=== PATIENT | male | born 1980 | race Caucasian/White ===

== ENCOUNTER 2020-12-08 12:31 | Inpatient (IN) | payer SELFPAY ==
[2020-12-08] VITALS (11 sets, daily range): BP systolic 94–126; BP diastolic 56–77
[~2020-12-08] VITALS: Ht 177.8 cm; Wt 135.2 kg
[~2020-12-08 12:31] MED LIST: COMPAZINE10 MG PO; FLAGYL500 MG PO; KEFLEX500 MG PO; LODINE 400MG400 MG PO; MEDROL DOSEPAK4 MG PO; MOTRIN800 MG PO; TRAMADOL HCL50 MG PO; TRIMOX500 MG PO; ULTRAM50 MG PO
[2020-12-08 13:07] LABS: HEMATOCRIT 54.8 % (42.0-52.0); MEAN CELL VOLUME 94.5 fl (80.0-94.0); MEAN CORPUSCULAR HGB CONC 31.8 g/dl (33.0-37.0); MEAN PLATELET VOLUME 11.4 fl (9.6-12.3); PLATELET COUNT AUTOMATED 390 10*3/uL (130-400); RED CELL DISTRI WIDTH 15.8 % (0-14.5); WHITE BLOOD COUNT 20.5 10*3/uL (4.8-10.8)
[2020-12-08 13:26] LABS: PLATELET SUFFICIENCY NORMAL (NORMAL); TOTAL CELLS COUNTED 100 #CELLS
[2020-12-08 14:00] LABS: ALBUMIN 3.4 gm/dl (3.1-4.5); CREATININE 2.92 mg/dL (0.70-1.30); TOTAL PROTEIN 8.6 gm/dL (6.4-8.2)
[2020-12-08 14:05] LABS: HDL CHOLESTEROL 44 mg/dl (40-60); POTASSIUM 6.1 mmol/L (3.5-5.1)
--- NOTE | 2020-12-08 14:08 | NUR ---
PATIENT REPORTS PAIN IMPROVEMENT WITH MEDICATION
[2020-12-08 14:26] LABS: TRIGLYCERIDES 2801 mg/dl (<150)
[2020-12-08 14:27] LABS: CHOLESTEROL 586 mg/dL (<200)
[2020-12-08 15:39] LABS: ABG BASE EXCESS -24.1 mmol/L (-2.0-2.0); ARTERIAL BLOOD GAS PH 7.141 (7.35-7.45)
--- NOTE | 2020-12-08 15:44 | NUR ---
BGM CHECKED AND READ HIGH. PHYSICIAN AWARE AND LAB AT BEDSIDE TO DRAW BMP. NOTIFIED PHYSICIAN OF [id number]. SEE NEW ORDERS.
--- NOTE | 2020-12-08 15:45 | NUR ---
DR MICHELE CONTACTED AT THIS TIME AND NOTIFIED OF CONSULT. REQUESTS THAT I ALSO HAVE THE RESIDENT CALL HIM WELL. DR MAKAYLA POWELL IS NOTIFIED OF THIS AT THIS TIME/
[2020-12-08 17:14] LABS: CREATININE 2.37 mg/dL (0.70-1.30)
[2020-12-08 18:32] LABS: CREATININE 1.94 mg/dL (0.70-1.30)
[2020-12-08 18:55] LABS: POTASSIUM 5.4 mmol/L (3.5-5.1)
--- NOTE | 2020-12-08 20:00 | NUR ---
INSULING DRIP CHANGED TO 6UNITS/HOUR PER ORDER.
[2020-12-08 20:34] LABS: CREATININE 1.81 mg/dL (0.70-1.30); POTASSIUM 5.6 mmol/L (3.5-5.1)
[2020-12-09] VITALS (11 sets, daily range): BP systolic 99–1119; BP diastolic 56–79
--- NOTE | 2020-12-09 00:02 | NUR ---
INSULIN DRIP TITRATED TO 3UNITS/HOUR PER ORDER.
[2020-12-09 00:42] LABS: BUN 23 mg/dl (7-24); CHLORIDE 107 mmol/L (98-107); CREATININE 1.35 mg/dL (0.70-1.30); SODIUM 136 mmol/L (136-145)
[2020-12-09 00:58] LABS: POTASSIUM 4.3 mmol/L (3.5-5.1)
--- NOTE | 2020-12-09 01:01 | NUR ---
CONTINUED COMPLAINTS OF A HEADACHE. CALLED INFORMED OF THIS AND THAT NORCO DIDN'T HELP MUCH. PT NOW NPO FOR ACUTE PANCREATITIS. SAID HE WOULD PUT SOMETHING IN.
--- NOTE | 2020-12-09 01:29 | NUR ---
TORADOL GIVEN FOR COMPLAINTS OF HEADACHE, WILL MONITOR. CALL LIGHT IN REACH.
--- NOTE | 2020-12-09 02:05 | NUR ---
PER PT, TORADOL EFFECTIVE. NO FURTHER COMPLAINTS OF HEADACHE. PT STATES HE IS HAVING HOT/COLD CHILLS. TEMP TAKEN-97.5. DENIES FURTHER NEEDS. CALL LIGHT IN REACH.
--- NOTE | 2020-12-09 03:00 | NUR ---
INSULIN DRIP TITRATED TO 2.5 UNITS/HR
--- NOTE | 2020-12-09 04:08 | NUR ---
BG-229, INSULIN DRIP RUNNING AT 2.5 UNITS/HR
--- NOTE | 2020-12-09 04:35 | NUR ---
SPOKE WITH , ORDERS FOR D5 1/2NS @125CC/HR REC'D. START FOLLOWING 0.45 NS. SEE ORDERS
--- NOTE | 2020-12-09 05:37 | NUR ---
PATIENT RESTING IN BED WITH EYES CLOSED. RR EASY AND NON-LABORED. CALL LIGHT WITHIN REACH. INSULIN DRIP RUNNING AT 2.5UNITS/HR AND D5 0.45NS RUNNING AT 125ML/HR. PATIENT HAS NO COMPLAINTS AT THIS TIME.
--- NOTE | 2020-12-09 06:07 | NUR ---
EMPIED 700ML OUTPUT FROM URINAL.
--- NOTE | 2020-12-09 06:07 | NUR ---
BG-236. NO CHANGE TO INSULIN. CURRENTLY RUNNING AT 2.5 UNITS/HR.
[2020-12-09 07:00] LABS: BASO % 0.2 % (0.0-1.0); EOS % 0.1 % (1.0-4.0); HEMATOCRIT 41.7 % (42.0-52.0); LYMPH # 1.1 10*3/uL (1.3-4.4); LYMPH % 10.4 % (27.0-41.0); MEAN CORPUSCULAR HGB 29.7 pg (27.0-31.0); MEAN CORPUSCULAR HGB CONC 33.3 g/dl (33.0-37.0); MEAN PLATELET VOLUME 10.1 fl (9.6-12.3); MONO # 0.8 10*3/uL (0.1-1.0); MONO % 7.2 % (3.0-9.0); NEUT # 8.4 10*3/uL (2.3-7.9); NEUT % 81.3 % (47.0-73.0); RED BLOOD COUNT 4.68 10*6/uL (4.50-5.90); RED CELL DISTRI WIDTH 15.3 % (0-14.5); WHITE BLOOD COUNT 10.4 10*3/uL (4.8-10.8)
--- NOTE | 2020-12-09 07:03 | NUR ---
PATIENTS BG-234. INSULIN DRIP CURRENTLY RUNNING AT 2.5 UNITS/HR.
[2020-12-09 07:04] LABS: MEAN CELL VOLUME 89.1 fl (80.0-94.0); PLATELET COUNT AUTOMATED 207 10*3/uL (130-400)
[2020-12-09 07:28] LABS: ACT PARTIAL THROMBO TIME 28.6 SECONDS (20.0-32.1)
[2020-12-09 07:34] LABS: VITAMIN D, 25-HYDROXY < 4.2 ng/mL (30-100)
[2020-12-09 07:48] LABS: ALBUMIN 2.4 gm/dl (3.1-4.5); ALKALINE PHOSPHATASE 77 U/L (45-117); BUN 20 mg/dl (7-24); CHLORIDE 108 mmol/L (98-107); CREATININE 1.17 mg/dL (0.70-1.30); LIPASE 522 U/L (73-393); POTASSIUM 4.3 mmol/L (3.5-5.1); SGOT/AST 48 IU/L (3-35); SGPT/ALT 28 U/L (12-78); SODIUM 136 mmol/L (136-145); TOTAL PROTEIN 6.9 gm/dL (6.4-8.2)
[2020-12-09 07:52] LABS: THYROID STIM HORMONE (HS) 0.531 uIU/ml (0.358-4.75)
[2020-12-09 08:01] LABS: FREE T4 1.19 ng/dl (0.76-1.46)
[2020-12-09 08:03] LABS: CHOLESTEROL 361 mg/dL (<200); HDL CHOLESTEROL 33 mg/dl (40-60)
[2020-12-09 08:08] LABS: TRIGLYCERIDES 1376 mg/dl (<150)
--- NOTE | 2020-12-09 08:16 | NUR ---
ORDERS RECEIVED TO GIVE ICE CHIPS SPARINGLY.
--- NOTE | 2020-12-09 08:20 | NUR ---
WAITING ON PHARMACY TO SEND K+ FOR INFUSION.
--- NOTE | 2020-12-09 10:29 | NUR ---
ICE CHIPS GIVEN PER DR STEVE.
--- NOTE | 2020-12-09 10:36 | NUR ---
SITTING UP IN BED EATING ICE CHIPS. NO COMPLAINTS, STATES "FEEL A LITTLE BETTER".
[2020-12-09 12:22] LABS: BUN 17 mg/dl (7-24); CHLORIDE 107 mmol/L (98-107); CREATININE 0.98 mg/dL (0.70-1.30); POTASSIUM 4.4 mmol/L (3.5-5.1); SODIUM 136 mmol/L (136-145)
--- NOTE | 2020-12-09 12:38 | NUR ---
RESTING IN NO DISTRESS. GIVEN A PILLOW. CALL LIGHT IN REACH.
--- NOTE | 2020-12-09 13:45 | NUR ---
EATING LUNCH AT THIS TIME.
[2020-12-09 17:07] LABS: BUN 15 mg/dl (7-24); CHLORIDE 106 mmol/L (98-107); CREATININE 0.92 mg/dL (0.70-1.30); POTASSIUM 3.8 mmol/L (3.5-5.1); SODIUM 137 mmol/L (136-145)
--- NOTE | 2020-12-09 19:55 | NUR ---
RESTING VOICES NO COMPLAINTS. PIPE CARLSON RN.
--- NOTE | 2020-12-09 23:30 | NUR ---
NO CHANGE IN CONDITION CALL LIGHT IN REACH. PIPE CARLSON RN.
[2020-12-10 03:25] VITALS: BP 131/79
--- NOTE | 2020-12-10 04:00 | NUR ---
PT SLEEPING AT THIS TIME CALL LIGHT IN REACH. PIPE CARLSON RN.
[2020-12-10 05:31] LABS: BUN 12 mg/dl (7-24); CHLORIDE 105 mmol/L (98-107); POTASSIUM 3.4 mmol/L (3.5-5.1); SGOT/AST 49 IU/L (3-35); SODIUM 137 mmol/L (136-145); TOTAL PROTEIN 6.5 gm/dL (6.4-8.2)
[2020-12-10 05:38] LABS: TRIGLYCERIDES 928 mg/dl (<150)
--- NOTE | 2020-12-10 06:00 | NUR ---
BLOOD SUGAR DONE WAS 186 AT THIS TIME. PIPE CARLSON RN.
[2020-12-10 06:05] LABS: ALBUMIN 2.3 gm/dl (3.1-4.5); SGPT/ALT 33 U/L (12-78)
[2020-12-10 06:09] LABS: ALKALINE PHOSPHATASE 81 U/L (45-117)
[2020-12-10 06:30] LABS: BASO % 0.3 % (0.0-1.0); EOS # 0.1 10*3/uL (0.0-0.4); EOS % 0.6 % (1.0-4.0); HEMATOCRIT 39.5 % (42.0-52.0); LYMPH # 1.5 10*3/uL (1.3-4.4); LYMPH % 18.2 % (27.0-41.0); MEAN CELL VOLUME 87.8 fl (80.0-94.0); MEAN CORPUSCULAR HGB 28.9 pg (27.0-31.0); MEAN CORPUSCULAR HGB CONC 32.9 g/dl (33.0-37.0); MEAN PLATELET VOLUME 10.5 fl (9.6-12.3); MONO # 0.7 10*3/uL (0.1-1.0); MONO % 8.7 % (3.0-9.0); NEUT # 5.7 10*3/uL (2.3-7.9); NEUT % 71.2 % (47.0-73.0); NUCLEATED RED BLOOD CELL 0.3 % (0.0-0.0); PLATELET COUNT AUTOMATED 189 10*3/uL (130-400); RED CELL DISTRI WIDTH 15.1 % (0-14.5)
--- NOTE | 2020-12-10 09:41 | NUR ---
DR MICHELE WAS CONTACTED PER DR PETERSEN ORDERS AND DR MICHELE STATES PT CAN BE DISCHARGED AND IS TO FOLLOW UP WITH HIM FOR AN OUTPATIENT SCOPE.
--- NOTE | 2020-12-10 10:21 | NUR ---
PT RESTING IN BED. NO ACUTE DISTRESS. NO NEEDS AT THIS TIME. STATES HE IS ABLE TO KEEP FLUIDS DOWN AND FEELS BETTER THAN WHEN HE CAME IN
[2020-12-10] MEDS ORDERED: LIPITOR80 MG PO (11:28)
[2020-12-10] MEDS ORDERED: GLUCOPHAGE500 M1 PO (11:28)
[2020-12-10] MEDS ORDERED: ASPIRIN CHEWABL81 MG PO (11:28)
[2020-12-10] MEDS ORDERED: HUMALOG100 UNIT/1 SC (11:28)
[2020-12-10] MEDS ORDERED: LANTUS SOL100 UNIT/1 SC (11:28)
[2020-12-10] MEDS ORDERED: VITAMIN D3125 MCG PO (11:28)
[2020-12-10] MEDS ORDERED: PROTONIX40 MG PO (11:50)
[2020-12-10] MEDS ORDERED: REGLAN5 MG PO (11:50)
--- NOTE | 2020-12-10 12:09 | NUR ---
Nutritional Support Services Note: Pt instructed on diabetic diet. Diet copy given to pt. New onset DM. Pt is working from home and is sitting most of the day. Encouraged him to start with three meals a day and a night snack. Encouraged healthy eating and follow up if needed. All questions were answered. Encouraged follow up. Paula Daley Rdn Ld
== END 2020-12-10 12:59 | disposition home or self-care (01) | DRG 637 ==
LOC: ED 12:31 → EDHOLD 14:14
PROVIDERS: Internal Medicine; Student in an Organized Health Care Education/Training Program; ADMIT Family Medicine; ATTEND Family Medicine
DX: E11.10 Type 2 diabetes mellitus with ketoacidosis without coma (principal); K85.90 Acute pancreatitis without necrosis or infection, unspecified; N17.0 Acute kidney failure with tubular necrosis; E43 Unspecified severe protein-calorie malnutrition; E87.1 Hypo-osmolality and hyponatremia; E87.2 Acidosis; K92.0 Hematemesis; K31.1 Adult hypertrophic pyloric stenosis; F13.10 Sedative, hypnotic or anxiolytic abuse, uncomplicated; I95.9 Hypotension, unspecified; D64.9 Anemia, unspecified; E87.5 Hyperkalemia; E87.8 Other disorders of electrolyte and fluid balance, not elsewhere classified; E83.41 Hypermagnesemia; R74.01 Elevation of levels of liver transaminase levels; F17.210 Nicotine dependence, cigarettes, uncomplicated; F12.10 Cannabis abuse, uncomplicated; Z83.3 Family history of diabetes mellitus

== ENCOUNTER 2025-08-28 19:59 | Emergency (ER) | payer SELFPAY ==
[~2025-08-28] VITALS: Ht 175.2 cm; Wt 104.3 kg
[~2025-08-28 19:59] MED LIST changes: +ASPIRIN CHEWABL81 MG PO; +GLUCOPHAGE500 M1 PO; +HUMALOG100 UNIT/1 SC; +LANTUS SOL100 UNIT/1 SC; +LIPITOR80 MG PO; +PROTONIX40 MG PO; +REGLAN5 MG PO; +VITAMIN D3125 MCG PO
[2025-08-28] MEDS ORDERED: CEPHALEXIN 500 MG CAP PO ONE (20:30)
[2025-08-28] MEDS ORDERED: Lidocaine Hydrochloride 2% 10 ML AMP SC ONE (20:30)
[2025-08-28] MEDS ORDERED: Bacitracin Zinc 14 GM TUBE T ONE (20:40)
[2025-08-28] MEDS ORDERED: CEPHALEXIN500 M1 PO (21:03)
== END 2025-08-28 21:08 | disposition home or self-care (01) ==
LOC: ED 19:59
DX: S81.811A Laceration without foreign body, right lower leg, initial encounter (principal); E11.9 Type 2 diabetes mellitus without complications; F17.210 Nicotine dependence, cigarettes, uncomplicated; Z98.890 Other specified postprocedural states; W18.09XA Striking against other object with subsequent fall, initial encounter; Y93.89 Activity, other specified; Y92.89 Other specified places as the place of occurrence of the external cause; Y99.8 Other external cause status